=== PATIENT | male | born 1985 | race Hispanic/Latino ===

== ENCOUNTER 2019-11-19 10:18 | Emergency (ER) | payer SELFPAY ==
[2019-11-19] MEDS ORDERED: Lidocaine 1% w/Epinephrine 1:100K 20 ML VIAL ONE (10:25)
[2019-11-19] MEDS ORDERED: Adacel (T-DAP) 0.5 ML SYRINGE ONE (10:32)
--- NOTE | 2019-11-19 10:44 | RAD ---
Left wrist 3 views HISTORY: Left wrist injury. Foreign body. FINDINGS: Large metallic nail, measuring total of 7.9 cm, overlies and is apparently embedded within the volar soft tissues of the wrist. The distal tip of the nail is closest to the bone, approximately 0.3 cm from the volar margin of the distal radial shaft. No osseous defects are apparent.
== END 2019-11-19 11:30 | disposition home or self-care (01) ==
LOC: ERS 10:18
DX: S61.542A Puncture wound with foreign body of left wrist, initial encounter (principal); W45.0XXA Nail entering through skin, initial encounter
CPT/HCPCS: 90471; 90715; 96365; J0690

== ENCOUNTER 2021-02-19 17:05 | Observation (INO) | payer OTHER, SELFPAY ==
[~2021-02-19 17:05] MED LIST: Iopamidol-370 76% 500 ML 1 ML ONE
[2021-02-19 17:39] LABS: #Basophils 0.1 thou/uL (0.0-0.2); #Eosinphils 0.1 thou/uL (0.0-0.7); #Lymphocytes 1.2 thou/uL (1.20-3.40); #Monocytes 0.4 thou/uL (0.11-0.59); #Neutrophils 2.4 thou/uL (1.40-6.50); %Basophils 1.8 % (0.0-1.0); %Lymphocytes 29.3 % (21.0-51.0); %Monocytes 9.1 % (0.0-10.0); %Neutrophils 57.9 % (42.0-75.0); Hemoglobin 7.1 g/dL (14.0-18.0); Mean Corpuscular HGB CONC 30.5 g/dL (32.0-36.0); Mean Corpuscular Hemoglobin 20.9 pg (27.0-31.0); Mean Corpuscular Volume 68.5 fL (78.0-98.0); Mean Platelet Volume 11.4 fL (7.4-10.4); Platelet Count 136 thou/uL (130-400); RBC Distribution Width 18.8 % (11.5-14.5); White Blood Cell (WBC) Count 4.1 thou/uL (4.8-10.8)
[2021-02-19 18:01] LABS: ALT (SGPT) 37 U/L (8-55); AST (SGOT) 31 U/L (5-34); Albumin 4.4 g/dL (3.5-5.0); Alkaline Phosphatase 61 U/L (40-110); Anion Gap 14 mmol/L (10-20); BUN (Urea Nitrogen) 15 mg/dL (8.9-20.6); Bilirubin, Total 0.4 mg/dL (0.2-1.2); Calc. Creatinine Clearance 0 mL/min (70-130); Carbon Dioxide 23 mmol/L (22-29); Chloride 107 mmol/L (98-107); Glucose 102 mg/dL (70-105); Protein, Total 7.4 g/dL (6.0-8.3); Sodium 140 mmol/L (136-145)
[2021-02-19 20:20] LABS: Bilirubin Negative (Negative); Blood, Urine Negative (Negative); Clarity Clear (Clear); Glucose, Urine (Dipstick) Normal (Negative); Ketone, Urine Negative (Negative); Leukocyte Negative Leu/uL (Negative); Nitrite Negative (Negative); Protein, Urine (Dipstick) Negative (Neg-Trace); Specific Gravity, Urine 1.021 (1.002-1.036); Urobilinogen Normal mg/dL (Less than 2)
[2021-02-19 20:30] LABS: INR-International Normal Ratio 0.9; PTT 28.1 sec (22.9-36.1); Prothrombin Time 12.6 sec (12.0-14.7)
[2021-02-19] MEDS ORDERED: Acetaminophen 325 MG TAB PO PRN (22:28)
[2021-02-19] MEDS ORDERED: Acetaminophen 650 MG Suppository PR PRN (22:28)
[2021-02-19] MEDS: Sodium Chloride 0.9% 1,000 ML IV SCH (23:37)
[2021-02-20 00:14] LABS: Hemoglobin 7.7 g/dL (14.0-18.0)
[2021-02-20 05:02] LABS: #Basophils 0.1 thou/uL (0.0-0.2); #Eosinphils 0.1 thou/uL (0.0-0.7); #Lymphocytes 1.7 thou/uL (1.20-3.40); #Monocytes 0.4 thou/uL (0.11-0.59); %Basophils 1.5 % (0.0-1.0); %Eosinophils 2.6 % (0.0-10.0); Hemoglobin 8.2 g/dL (14.0-18.0); Mean Corpuscular HGB CONC 30.9 g/dL (32.0-36.0); Mean Corpuscular Hemoglobin 21.6 pg (27.0-31.0); Mean Platelet Volume 11.5 fL (7.4-10.4); Platelet Count 141 thou/uL (130-400); RBC Distribution Width 19.2 % (11.5-14.5); Red Blood Cell (RBC) Count 3.77 mill/uL (4.70-6.10); White Blood Cell (WBC) Count 5.3 thou/uL (4.8-10.8)
[2021-02-20 05:27] LABS: Lactic Acid 0.5 mmol/L (0.5-2.2)
[2021-02-20 05:29] LABS: Iron Binding Capacity, Total 430 mcg/dL (261-462)
[2021-02-20 05:30] LABS: Iron 16 ug/dL (65-175)
[2021-02-20 05:31] LABS: Anion Gap 13 mmol/L (10-20); BUN (Urea Nitrogen) 13 mg/dL (8.9-20.6); Calc. Creatinine Clearance 0 mL/min (70-130); Calcium 8.7 mg/dL (7.8-10.44); Carbon Dioxide 25 mmol/L (22-29); Chloride 108 mmol/L (98-107); Glucose 92 mg/dL (70-105); Iron 16 ug/dL (65-175); Iron Binding Capacity, Total 443 mcg/dL (261-462); Magnesium 1.8 mg/dL (1.6-2.6); Potassium 3.9 mmol/L (3.5-5.1); Sodium 142 mmol/L (136-145)
[2021-02-20 05:36] LABS: SARS-CoV-2 PCR by NAA Not Detected (NotDetected)
[2021-02-20 05:54] LABS: Ferritin 8.59 ng/mL (22-322)
[2021-02-20 07:25] LABS: Hemoglobin 7.8 g/dL (14.0-18.0)
[2021-02-20] MEDS ORDERED: Calcium Carbonate 500 MG ChewTAB PO PRN (07:42)
[2021-02-20] MEDS ORDERED: Loratadine 10 MG TAB PO PRN (07:42)
[2021-02-20] MEDS ORDERED: Senokot S 8.6-50 MG TAB PO PRN (07:42)
[2021-02-20] MEDS ORDERED: Bisacodyl 5 MG TAB PO PRN (07:42)
[2021-02-20] MEDS ORDERED: hydrALAZINE 20 MG/ML VIAL SLOW IVP PRN (07:42)
[2021-02-20] MEDS ORDERED: Ondansetron PF 4 MG/2 ML Vial IVP PRN (07:42)
[2021-02-20] MEDS ORDERED: Ondansetron ODT 4 MG TAB PO PRN (07:42)
[2021-02-20] MEDS ORDERED: HYDROcodone/Acetaminophen 5/325 mg Tablet PO PRN (07:42)
[2021-02-20] MEDS ORDERED: GUAIFENESIN SF SOLN 200 MG/10 ML UDCUP PO PRN (07:42)
[2021-02-20] MEDS ORDERED: Loperamide HCl 2 MG CAP PO PRN (07:42)
[2021-02-20] MEDS ORDERED: Cepastat Lozenges 1 LOZ PO PRN (07:42)
[2021-02-20] MEDS ORDERED: Famotidine/PF 20 mg/2ml Vial ONE (08:41)
[2021-02-20] MEDS: Famotidine/PF 20 mg/2ml Vial SLOW IVP SCH ×2 (08:44→20:55)
[2021-02-20] MEDS ORDERED: Iron, Sodium Ferric Gluconate 250 MG in Sodium Chloride 0.9% 100 ML IVPB SCH (09:00)
[2021-02-20 12:38] LABS: Hemoglobin 8.6 g/dL (14.0-18.0)
[2021-02-20] MEDS: Sodium Chloride 0.9% 1,000 ML IV SCH (15:49)
[2021-02-20 19:11] VITALS: BMI 22.1
[2021-02-20] MEDS ORDERED: GoLYTELY 4,000 ml Bottle PO SCH (20:00)
[2021-02-21] MEDS: Sodium Chloride 0.9% 1,000 ML IV SCH (02:45)
[2021-02-21] MEDS ORDERED: Iron, Sodium Ferric Gluconate 250 MG in Sodium Chloride 0.9% 100 ML IVPB SCH (08:00)
[2021-02-21] MEDS: Famotidine/PF 20 mg/2ml Vial SLOW IVP SCH (08:49)
[2021-02-21] MEDS ORDERED: PROPOFOL 200 MG/20 ML VIAL ONE (13:08)
[2021-02-21 19:32] VITALS: BP 120/77; TEMP 98
[2021-02-21] MEDS ORDERED: Hydrocortisone Acetate 25 MG Suppository PR SCH (21:00)
[2021-02-22] MEDS ORDERED: Citrucel 500 MG TAB PO SCH (09:00)
== END 2021-02-21 17:00 | disposition home or self-care (01) ==
LOC: ERS 17:05 → ERHOLD 20:17 → T4-B 02-20 15:32
PROVIDERS: ADMIT Internal Medicine; ATTEND Internal Medicine
PROC: 0DBB8ZX Excision of Ileum, Via Natural or Artificial Opening Endoscopic, Diagnostic (ICD-10-PCS; principal; 2021-02-21)
PROC: 0DJ08ZZ Inspection of Upper Intestinal Tract, Via Natural or Artificial Opening Endoscopic (ICD-10-PCS; 2021-02-21)
DX: K52.89 Other specified noninfective gastroenteritis and colitis (principal); K63.3 Ulcer of intestine; K64.8 Other hemorrhoids; K62.5 Hemorrhage of anus and rectum; D50.0 Iron deficiency anemia secondary to blood loss (chronic); Z20.822 Contact with and (suspected) exposure to COVID-19
CPT/HCPCS: 36415; 36430; 74177; 80048; 80053; 81003; 82274; 82607; 82728; 82746; 83540; 83550; 83605; 83690; 83735; 85014; 85018; 85025; 85610; 85730; 86850; 86900; 86901; 87635; 88305; 93005; 96374; 96375; 96376; G0378; J2405; J2704; J2916; J3490; P9016; Q9967; S0028; U0003; U0005